=== PATIENT | male | born 1975 | race Hispanic/Latino ===

== ENCOUNTER → 2022-04-08 | Outpatient (CLI) | payer OTHER ==
[~2022-04-08] MED LIST: ATOR40TA71 PO; CILO100T3 PO; METO25TA6 PO; PRAS10TA6 PO
[2022-04-08 13:52] LABS: CHOLESTEROL 138 mg/dL (<200); HDL CHOLESTEROL 35 mg/dL (29-71); LDL DIRECT 84 mg/dL (0-99); TRIGLYCERIDES 113 mg/dL (30-200)
== END | disposition home or self-care (01) ==
LOC: LAB 10:03
PROVIDERS: ATTEND Internal Medicine
DX: I10 Essential (primary) hypertension (principal); I25.10 Atherosclerotic heart disease of native coronary artery without angina pectoris
CPT/HCPCS: 36415; 80061